=== PATIENT | female | born 1950 | race Caucasian/White ===

== ENCOUNTER 2018-04-18 19:39 | Emergency (ER) | payer MEDICARE, OTHER ==
[~2018-04-18] VITALS: Ht 160 cm; Wt 93.0 kg
[~2018-04-18 19:39] MED LIST: ASPI81EC; CIPRO500 MG PO; CITA20; CRUTCH3 USE; FAMO20; FELO2.5; FEXPSEER; FISH1000; Flagyl500 MG PO; GARLIC; HYDACE5 PO; LAMO100; LAMO100 PO; LEVSOD50 PO; LOPERAMIDE; LORA1 PO; LOVA40; MECL25 PO; MONT10T; MONT10T PO; MULVITA; MULVITMIND; Norco 5-325 Ta1 EACH PO; ONDA4ODT MM; PROM25 PO; Percocet 5-3251 EACH PO; ROSU10TA; ROSU10TA PO; RXHYDACE PO; RXONDA4ODT MM; SERT100 PO; VITB100; ZERTEC; [UNRECOGNIZED DRUG - OTHER]; [UNRECOGNIZED DRUG - REMARK]
[2018-04-18 20:44] LABS: BASOPHILS ABSOLUTE AUTO 0.04 K/mm3 (0.00-0.23); BASOPHILS PERCENT AUTO 1 % (0-2); EOSINOPHILS PERCENT AUTO 1 % (0-6); Hematocrit 41.4 % (33.0-51.0); Hemoglobin 13.7 g/dL (11.5-16.0); IMMATURE GRAN ABSOLUTE AUTO 0.02 K/mm3 (0.00-0.10); IMMATURE GRAN PERCENT AUTO 0 % (0-1); LYMPHOCYTES ABSOLUTE AUTO 2.78 K/mm3 (0.84-5.20); LYMPHOCYTES PERCENT AUTO 33 % (21-46); MONOCYTES ABSOLUTE AUTO 0.69 K/mm3 (0.16-1.47); MONOCYTES PERCENT AUTO 8 % (4-13); Mean Corpuscular HGB 30.4 pg (26.0-34.0); Mean Corpuscular HGB Conc 33.1 g/dL (31.5-36.5); Mean Corpuscular Volume 92 fL (80-100); Mean Platelet Volume 9.6 fL (9.1-12.4); NEUTROPHILS ABSOLUTE AUTO 4.79 K/mm3 (1.96-9.15); NEUTROPHILS PERCENT AUTO 57 % (41-73); Platelet Count 244 K/mm3 (150-400); RDW Coefficient Variation 13.7 % (11.7-14.2); RDW Standard Deviation 46.5 fL (35.1-46.3); Red Blood Cell Count 4.51 M/mm3 (3.80-5.20); White Blood Cell Count 8.42 K/mm3 (4.00-11.30)
[2018-04-18 20:49] LABS: Alanine Aminotransfer (ALT/SGP 46 U/L (12-78); Albumin, Blood 3.6 g/dL (3.4-5.0); Alk Phos 122 U/L (50-136); Anion Gap 7 mmol/L (6-16); Aspartate Aminotrans (AST/SGOT 33 U/L (12-37); Bilirubin, Total 0.3 mg/dL (0.1-1.0); Blood Urea Nitrogen 15 mg/dL (8-24); Bun/Creatinine Ratio 13.5 (12.0-20.0); CO2, Blood 22 mmol/L (21-32); Chloride, Blood 111 mmol/L (98-108); Creatinine, Blood 1.11 mg/dL (0.40-1.00); Globulin, Blood 3.6 g/dL (2.2-4.0); Glomerular Filtration Rate 52 (60-); Glucose, Blood 110 mg/dL (70-99); Potassium, Blood 3.5 mmol/L (3.5-5.5); Sodium, Blood 140 mmol/L (136-145); Total Protein, Blood 7.2 g/dL (6.4-8.2); Troponin I <0.015 ng/mL (0.000-0.040)
[2018-04-18 21:43] LABS: Influenza A Negative (NEGATIVE); Influenza B Negative (NEGATIVE)
[2018-04-18] MEDS ORDERED: Doxycycline Hy100 MG PO (22:21)
[2018-04-18 22:59] LABS: Source, Urine Clean Catch
[2018-04-18 23:01] LABS: Bilirubin, Urine Neg (Neg); Blood, Urine Neg (Neg); Glucose Qualitative, Urine Neg (Neg); Ketones, Urine Neg (Neg); Leukocyte Esterase, Urine 3+ (Neg); Nitrite, Urine Neg (Neg); Protein, Urine Neg (Neg); Specific Gravity, Urine 1.015 (1.003-1.022); Urobilinogen, Urine NORM (Normal)
[2018-04-18 23:02] LABS: Appearance, Urine Clear (Clear); Color, Urine Yellow (P-Yellow)
[2018-04-18 23:15] LABS: Bacteria Few /hpf; Mucus Light (0-Heavy); Other Crystals Few /hpf; Red Blood Cells, Urine Not Seen /hpf (0-2); Squamous Epithelial Cells Not Seen /hpf (Few)
== END 2018-04-19 00:10 | disposition home or self-care (01) ==
LOC: ER 19:39
PROVIDERS: Emergency Medicine
DX: J18.9 Pneumonia, unspecified organism (principal); Z88.0 Allergy status to penicillin; Z88.5 Allergy status to narcotic agent; Z79.899 Other long term (current) drug therapy; Z79.82 Long term (current) use of aspirin
CPT/HCPCS: 36415; 71046; 80053; 81001; 84484; 85025; 87077; 87086; 87186; 87804; 93005; 93010; 96360; 99285-25; J7030

== ENCOUNTER 2019-03-17 10:52 | Emergency (ER) | payer MEDICARE, OTHER ==
[~2019-03-17] VITALS: Ht 157.5 cm; Wt 90.3 kg
[~2019-03-17 10:52] MED LIST changes: +Doxycycline Hy100 MG PO
[2019-03-17 11:40] LABS: BASOPHILS ABSOLUTE AUTO 0.02 K/mm3 (0.00-0.23); BASOPHILS PERCENT AUTO 0 % (0-2); EOSINOPHILS ABSOLUTE AUTO 0.04 K/mm3 (0.00-0.68); EOSINOPHILS PERCENT AUTO 1 % (0-6); Hematocrit 45.7 % (33.0-51.0); Hemoglobin 14.8 g/dL (11.5-16.0); IMMATURE GRAN ABSOLUTE AUTO 0.03 K/mm3 (0.00-0.10); IMMATURE GRAN PERCENT AUTO 0 % (0-1); LYMPHOCYTES ABSOLUTE AUTO 2.14 K/mm3 (0.84-5.20); LYMPHOCYTES PERCENT AUTO 31 % (21-46); MONOCYTES ABSOLUTE AUTO 0.47 K/mm3 (0.16-1.47); MONOCYTES PERCENT AUTO 7 % (4-13); Mean Corpuscular HGB 30.1 pg (26.0-34.0); Mean Corpuscular HGB Conc 32.4 g/dL (31.5-36.5); Mean Corpuscular Volume 93 fL (80-100); Mean Platelet Volume 9.9 fL (9.1-12.4); NEUTROPHILS ABSOLUTE AUTO 4.32 K/mm3 (1.96-9.15); NEUTROPHILS PERCENT AUTO 62 % (41-73); Platelet Count 226 K/mm3 (150-400); RDW Standard Deviation 44.6 fL (35.1-46.3); Red Blood Cell Count 4.91 M/mm3 (3.80-5.20); White Blood Cell Count 7.02 K/mm3 (4.00-11.30)
[2019-03-17 12:03] LABS: Alanine Aminotransfer (ALT/SGP 37 U/L (12-78); Albumin, Blood 3.9 g/dL (3.4-5.0); Albumin/Globulin Ratio 1.1 (0.8-1.8); Alk Phos 125 U/L (50-136); Anion Gap 7 mmol/L (6-16); Aspartate Aminotrans (AST/SGOT 22 U/L (12-37); Bilirubin, Total 0.3 mg/dL (0.1-1.0); Blood Urea Nitrogen 17 mg/dL (8-24); Bun/Creatinine Ratio 16.8 (12.0-20.0); CO2, Blood 25 mmol/L (21-32); Calcium, Blood 8.9 mg/dL (8.5-10.1); Chloride, Blood 111 mmol/L (98-108); Creatinine, Blood 1.01 mg/dL (0.40-1.00); Globulin, Blood 3.7 g/dL (2.2-4.0); Glomerular Filtration Rate 58 (60-); Glucose, Blood 110 mg/dL (70-99); Potassium, Blood 4.4 mmol/L (3.5-5.5); Sodium, Blood 143 mmol/L (136-145); Total Protein, Blood 7.6 g/dL (6.4-8.2); Troponin I <0.015 ng/mL (0.000-0.040)
[2019-03-17] MEDS ORDERED: MOTION RELIEF25 MG PO (15:47)
== END 2019-03-17 16:15 | disposition home or self-care (01) ==
LOC: ER 10:52
PROVIDERS: Emergency Medicine
DX: H83.09 Labyrinthitis, unspecified ear (principal); R42 Dizziness and giddiness; Z88.0 Allergy status to penicillin; Z88.8 Allergy status to other drugs, medicaments and biological substances; Z88.5 Allergy status to narcotic agent; Z79.899 Other long term (current) drug therapy; Z79.82 Long term (current) use of aspirin; I10 Essential (primary) hypertension; E03.9 Hypothyroidism, unspecified; E78.5 Hyperlipidemia, unspecified; F32.9 Major depressive disorder, single episode, unspecified; Z87.891 Personal history of nicotine dependence
CPT/HCPCS: 36415; 71046; 80053; 84484; 85025; 93005; 93010; 96374; 99284-25; J2405

== ENCOUNTER → 2019-09-18 | Outpatient (CLI) | payer MEDICARE, OTHER ==
[~2019-09-18] MED LIST changes: +MOTION RELIEF25 MG PO
== END | disposition home or self-care (01) ==
LOC: LAB EV 17:42 → LAB SHORT 17:42
DX: N39.0 Urinary tract infection, site not specified (principal)
CPT/HCPCS: 87086

== ENCOUNTER 2020-01-28 07:45 | Day surgery (SDC) | payer MEDICARE, OTHER ==
[~2020-01-28] VITALS: Ht 160 cm; Wt 90.0 kg
[~2020-01-28 07:45] MED LIST changes: -ASPI81EC; +Aspirin EC81 MG PO; +EUTHYROX88 MCG PO; +OMEP20ER PO
[2020-01-28] MEDS ORDERED: ISOSORBIDE MONO30 MG PO (08:26)
[2020-01-28 09:04] LABS: International Normalized Ratio 1.04; Prothrombin Time Results 11.1 Sec (9.7-11.5)
[2020-01-28] MEDS ORDERED: CLOP75 PO ×2 (11:54→15:57)
--- NOTE | 2020-01-28 12:45 | NUR ---
DR. CRANDALL CALLED DUE TO PT ALMOST FAINTING, DIAPHARETIC, CONFUSION HYPOTENSION AND RADIAL SITE HEMATOMA THE SIZE OF A [place]YAR[place]. PRESSURE WAS HELD MANUALLY, PT LAYED FLAT, FLUIDS WIDE OPEN-PER DR'S ORDERS. PRESSURE RETURNED QUICKLY. WILL CONTINUE TO MONITOR.
--- NOTE | 2020-01-28 13:00 | NUR ---
R RADIAL SITE HEMATOMA APPEARED. MANUAL PRESSURE WAS HELD FOR 15 MIN-CDI.
--- NOTE | 2020-01-28 13:45 | NUR ---
R RADIAL SITE HEMATOMA-MANUAL PRESSURE HELD FOR 15 MINUTES.-CDI
--- NOTE | 2020-01-28 14:15 | NUR ---
R RADIAL SITE HEMATOMA-PRESSURE HELD FOR 15 MIN. CDI WILL CONTINUE TO MONITOR.
--- NOTE | 2020-01-28 16:30 | NUR ---
TR BAND ALL AIR REMOVED FROM TR BAND. CDI-NO HEMATOMA NOTED.
--- NOTE | 2020-01-28 17:07 | NUR ---
DISCHARGE PAPERWORK PT REMAINED A&OX3 AND HAD MINIMAL PAIN IN RIGHT WRIST SITE-RESOLVED WITH ICE, REPOSITIONING AND MEDICATION PER SEP. DISCHARGE PAPERWORK GONE OVER WITH PT AND DAUGHTER. PT AND DAUGHTER VERBALLY STATED THE UNDERSTANDING OF THE DISCHARGE EDUCATION AND DENIED ANY QUESTIONS AT THIS TIME. HEATHER Robledo TOOK OVER CARE OF PATIENT.
--- NOTE | 2020-01-28 17:50 | NUR ---
PT DRESSED, TR BAND REMOVED, ACCESS SITE DRESSING PLACED, R WRIST SPLINT/R ARM SLING PLACED, PT IV DC'D INTACT, PT DC'D BY THIS RN BY WC WITH DAUGHTER DRIVING PT HOME
== END 2020-01-28 22:41 | disposition home or self-care (01) ==
LOC: MHTC 07:45
PROVIDERS: Internal Medicine Interventional Cardiology
DX: I25.118 Atherosclerotic heart disease of native coronary artery with other forms of angina pectoris (principal); E78.00 Pure hypercholesterolemia, unspecified; I12.9 Hypertensive chronic kidney disease with stage 1 through stage 4 chronic kidney disease, or unspecified chronic kidney disease; E03.9 Hypothyroidism, unspecified; G47.33 Obstructive sleep apnea (adult) (pediatric); E78.5 Hyperlipidemia, unspecified; E66.9 Obesity, unspecified; H90.5 Unspecified sensorineural hearing loss; N18.3 Chronic kidney disease, stage 3 (moderate); F41.9 Anxiety disorder, unspecified; Z87.891 Personal history of nicotine dependence; Z88.8 Allergy status to other drugs, medicaments and biological substances; Z88.0 Allergy status to penicillin; Z88.5 Allergy status to narcotic agent; Z79.899 Other long term (current) drug therapy; Z68.30 Body mass index [BMI] 30.0-30.9, adult
CPT/HCPCS: 76937; 85347; 85610; 93005; 93010; 93306; 93458; 99152; 99153; A9270; C1725; C1769; C1874; C1887; C1894; C9600; J1644; J2250; J3010; J7030; Q9967

== ENCOUNTER → 2020-04-27 | Outpatient (CLI) | payer MEDICARE, OTHER ==
[~2020-04-27] MED LIST changes: +CLOP75 PO; +ISOSORBIDE MONO30 MG PO
== END | disposition home or self-care (01) ==
LOC: LAB EV 16:15 → LAB SHORT 16:15
DX: N39.0 Urinary tract infection, site not specified (principal)
CPT/HCPCS: 87077; 87086; 87186

== ENCOUNTER → 2020-05-22 | Outpatient (CLI) | payer MEDICARE, OTHER ==
[2020-05-22 19:02] LABS: Protein, Urine Quantitative 5.6 mg/dL (0.0-11.9)
[2020-05-22 19:14] LABS: Microalbumin, Urine Quant. <5.000 mg/L (0.000-20.000)
== END | disposition home or self-care (01) ==
LOC: LAB SHORT 14:43 → LAB EV 14:43
PROVIDERS: Internal Medicine Nephrology
DX: N18.30 Chronic kidney disease, stage 3 unspecified (principal); D63.1 Anemia in chronic kidney disease; N25.81 Secondary hyperparathyroidism of renal origin; E55.9 Vitamin D deficiency, unspecified; E78.00 Pure hypercholesterolemia, unspecified; R76.9 Abnormal immunological finding in serum, unspecified; R94.5 Abnormal results of liver function studies; R94.6 Abnormal results of thyroid function studies; D51.8 Other vitamin B12 deficiency anemias; D52.8 Other folate deficiency anemias
CPT/HCPCS: 81050; 82043; 82570; 84156

== ENCOUNTER → 2020-12-26 | Outpatient (CLI) | payer MEDICARE, OTHER ==
[~2020-12-26] MED LIST changes: +Budeprion Xl300 MG PO; +DEXA2 PO; +ISOSORBIDE MONO60 MG PO; +LEVO-T100 MC1 PO; +NEURONTIN300 MG PO; +RAYALDEE30 MCG PO
== END | disposition home or self-care (01) ==
LOC: LAB SHORT 13:03 → LAB 13:03
DX: Z20.822 Contact with and (suspected) exposure to COVID-19 (principal)
CPT/HCPCS: U0003

== ENCOUNTER 2021-01-04 16:09 | Inpatient (IN) | payer MEDICARE, OTHER ==
[~2021-01-04] VITALS: Ht 160 cm; Wt 94.0 kg
[~2021-01-04 16:09] MED LIST changes: -Budeprion Xl300 MG PO; -DEXA2 PO; -ISOSORBIDE MONO60 MG PO; -LEVO-T100 MC1 PO; -NEURONTIN300 MG PO; -RAYALDEE30 MCG PO
[2021-01-04 16:52] LABS: BASOPHILS ABSOLUTE AUTO 0.01 K/mm3 (0.00-0.23); BASOPHILS PERCENT AUTO 0 % (0-2); EOSINOPHILS PERCENT AUTO 0 % (0-6); Hematocrit 43.5 % (33.0-51.0); Hemoglobin 14.4 g/dL (11.5-16.0); IMMATURE GRAN ABSOLUTE AUTO 0.05 K/mm3 (0.00-0.10); IMMATURE GRAN PERCENT AUTO 1 % (0-1); LYMPHOCYTES ABSOLUTE AUTO 0.95 K/mm3 (0.84-5.20); LYMPHOCYTES PERCENT AUTO 18 % (21-46); MONOCYTES ABSOLUTE AUTO 0.26 K/mm3 (0.16-1.47); MONOCYTES PERCENT AUTO 5 % (4-13); Mean Corpuscular HGB 29.6 pg (26.0-34.0); Mean Corpuscular HGB Conc 33.1 g/dL (31.5-36.5); Mean Corpuscular Volume 89 fL (80-100); Mean Platelet Volume 9.4 fL (9.1-12.4); NEUTROPHILS ABSOLUTE AUTO 4.17 K/mm3 (1.96-9.15); NEUTROPHILS PERCENT AUTO 77 % (41-73); Platelet Count 181 K/mm3 (150-400); RDW Coefficient Variation 13.4 % (11.7-14.2); RDW Standard Deviation 44.2 fL (35.1-46.3); Red Blood Cell Count 4.87 M/mm3 (3.80-5.20); White Blood Cell Count 5.44 K/mm3 (4.00-11.30)
[2021-01-04 17:17] LABS: Alanine Aminotransfer (ALT/SGP 70 U/L (12-78); Albumin, Blood 3.2 g/dL (3.4-5.0); Albumin/Globulin Ratio 0.8 (0.8-1.8); Alk Phos 193 U/L (50-136); Anion Gap 6 mmol/L (6-16); Aspartate Aminotrans (AST/SGOT 67 U/L (12-37); Bilirubin, Total 0.3 mg/dL (0.1-1.0); Blood Urea Nitrogen 15 mg/dL (8-24); Bun/Creatinine Ratio 16.3 (12.0-20.0); CO2, Blood 25 mmol/L (21-32); Calcium, Blood 8.4 mg/dL (8.5-10.1); Chloride, Blood 105 mmol/L (98-108); Creatinine, Blood 0.92 mg/dL (0.40-1.00); Globulin, Blood 4.1 g/dL (2.2-4.0); Glomerular Filtration Rate >60 (60-); Glucose, Blood 108 mg/dL (70-99); Potassium, Blood 3.7 mmol/L (3.5-5.5); Sodium, Blood 136 mmol/L (136-145); Thyroid Stimulating Hormone 0.903 uIU/mL (0.360-4.800); Total Protein, Blood 7.3 g/dL (6.4-8.2); Troponin I <0.015 ng/mL (0.000-0.040)
[2021-01-04 17:53] LABS: Base Excess Venous -0.4 mmol/L; PCO2 Venous 41.6 mmHg (38-42); pH Blood Venous 7.38 (7.34-7.37)
[2021-01-04 18:48] LABS: Source, Urine Voided
[2021-01-04 18:53] LABS: Appearance, Urine Clear (Clear); Bilirubin, Urine Neg (Neg); Blood, Urine Neg (Neg); Color, Urine Yellow (P-Yellow); Glucose Qualitative, Urine Neg (Neg); Ketones, Urine 1+ (Neg); Leukocyte Esterase, Urine 1+ (Neg); Nitrite, Urine Neg (Neg); Protein, Urine 1+ (Neg); Specific Gravity, Urine 1.015 (1.003-1.022); Urobilinogen, Urine NORM (Normal)
[2021-01-04 19:07] LABS: Bacteria Mod /hpf; Red Blood Cells, Urine Not Seen /hpf (0-2); Squamous Epithelial Cells Few /hpf (Few)
[2021-01-04] MEDS ORDERED: LEVO-T100 MC1 PO (19:52)
[2021-01-04] MEDS ORDERED: Budeprion Xl300 MG PO (19:54)
[2021-01-04] MEDS ORDERED: ISOSORBIDE MONO60 MG PO (19:54)
[2021-01-04] MEDS ORDERED: OMEP20ER PO (19:55)
[2021-01-04] MEDS ORDERED: NEURONTIN300 MG PO (19:56)
[2021-01-04] MEDS ORDERED: RAYALDEE30 MCG PO (22:06)
[2021-01-05 04:43] LABS: Bun/Creatinine Ratio 14.3 (12.0-20.0); Calcium, Blood 8.1 mg/dL (8.5-10.1); Creatinine, Blood 0.98 mg/dL (0.40-1.00); Potassium, Blood 3.7 mmol/L (3.5-5.5)
--- NOTE | 2021-01-05 05:33 | NUR ---
SHIFT SUMMARY* PATIENT ADMITTED TO FLOOR AT APPROXIMETLY 2130. FOUND TO BE A PLEASANT LADY WHO IS A&OX4. GEN WEAKNESS NOTED SINCE START OF COVID DX ON THE 5TH. CHRONIC BACK PAIN WORSE THAN USUAL SO PRN FENT GIVEN WITH GOOD IMPROVEMENT TO TOLERABLE LEVEL. VSS. NSR IN THE 80'S. SOME MILD CP COMING AND GOING WITH EXERTION. TAKEN FOR CTA WHICH WAS NEGATIVE. ON 2L NC SATING LOW 90'S. CPAP TO BE PUT ON FOR SLEEP. CRUZ AND DRY COUGH NOTED. TOLERATING CARDIAC DIET AND EXPRESSED THAT HER NAUSEA IS MUCH IMPROVED FROM LAST FEW DAYS. ATE HALF OF DINNER IS TAKING IT SLOW. SBA TO BATHROOM AND ONE BM HAD AT START OF SHIFT. UNSTEADY AND USING WALKER. KNOWS HER LIMITS AND CALLS APPROPRIATELY. 1ST DOSE DECADRON AND REMDESIVIR GIVEN PER ORDER. NO ACUTE CONCERNS AT THIS TIME. WILL CONTINUE TO MONITOR UNTIL REPORT GIVEN TO DAYSHIFT RN.
--- NOTE | 2021-01-05 14:55 | NUR ---
ADMIT: 01/04/21 DISCHARGE: DX: acute respiratory failure with hypoxia CC: [email or web address] PAM CALL: RESIDENCE: home with spouse CAREGIVER: Octaviano Xiong, Spouse / Partner, Dionte Ching, Child, Ellen Thao, family friend, DX: Anxiety, bipolar, COVID-19, CKD-stage 3, CRUZ, see list DME: briefs, CPAP CCM: none HOME HEALTH: none SUMMARY: 01/05/21- pt received + COVID on 12/25/20. XR- chest shows bilateral pneumonia. CT was done to rule out pulmonary embolism. CPAP settings: 10 w/ 5LPM bleed in and 2L NC. IV antibiotics started. No plan to d/c at this time. -gladys
--- NOTE | 2021-01-05 20:00 | NUR ---
PT ASSISTED WITH AMBULATION TO BATHROOM SEVERAL TIMES ASSIST X1 WITH THE WALKER EXPERIENCING MILD WOBBLINESS AT INITIATION OF TRANSFER TO STANDING; PT REPORTED H/A 1X AND RECEIVED ACETAMINOPHEN PER MAR, AFTERWARDS REPORTING ADEQUATE ANALGESIC EFFECTS; PT VSS ON 3LNC; PT'S DAUGHTER AVI CALLED AT 1007 FOR UPDATES AND HAD QUESTIONS ANSWERED, REPORTING THAT SHE HAD NO FURTHER QUESTIONS FOR RN AND TO PASS HER NUMBER TO DOCTOR; AVI'S NUMBER WAS GIVEN TO DR. DAVIS WHEN HE ROUNDED WITH REQUEST TO PROVIDE HER WITH UPDATES ON PLAN OF CARE AND PROGNOSIS; PT REPORTED GUSTATORY DISTURBANCES WHICH HAVE LED TO HER DIMINISHED APPETITE; PT DENIES ADDITIONAL CONCERNS AT THIS TIME
--- NOTE | 2021-01-06 05:42 | NUR ---
SHIFT SUMMARY PATIENT FOUND TO BE A PLEASANT LADY WHO IS A&OX4. FEELING MUCH BETTER THIS EVENING COMPARED TO YESTERDAY PER PATIENT REPORT. ON 3L NC SATING LOW 90'S. CRUZ IMPROVING. CPAP AT BEDSIDE FOR SLEEP. OCCASIONAL DRY COUGH. NSR ON THE MONITOR. DAUGHTER BROUGHT HER DINNER AND SHE ATE MORE THAN HALF AFTER PREVENTATIVE ZOFRAN GIVEN. APPETITE IMPROVING. VOIDING WELL WITH BRP. UP WITH SBA AND WALKER IS STILL PRETTY WEAK. SLOWLY GETTING STRENGTH BACK. PRN FENT GIVEN X1 WHEN TYLENOL NO SUFFICIENT FOR BACK PAIN. NO ACUTE CONCERNS AT THIS TIME. WILL CONTINUE TO MONITOR UNTIL REPORT GIVEN TO DAYSHIFT RN.
--- NOTE | 2021-01-06 18:03 | NUR ---
SHIFT NOTE PT WAS ABLE TO GET UP TO BATHROOM FOR SHOWER, PT TIRED AFTER MORNING SHOWER AND HAS SLEPT T/O THE DAY. PT'S O2 NEED DID INCREASE WHILE SLEEPING THIS AFTERNOON PT SALES REPRESENTATIVE [employer] LIGHT CONCERNED THAT HER O2 DROPPED WHILE SLEEPING BUT REFUSED CPAP WHILE SLEEPING SHE REPORTS IT IS UNCOMFORTABLE. S/O AND DAUGHTER UPDATED TODAY, DAUGHTER WISHED TO SPEAK WITH DR DAVIS HE WAS NOTIFIED OF FAMILY REQUEST TO CALL DAUGHTER SHE IS CONCERNED THAT PT HAS NOT A HAD A REPEAT XR TODAY.
--- NOTE | 2021-01-07 15:41 | NUR ---
REPORT GIVEN TO DOROTHEA MARES ON MEDICAL.
--- NOTE | 2021-01-07 18:32 | NUR ---
SHIFT SUMMARY PT IS AOX4 AND PLEASANT. PT DENIES PAIN, N/V,SOB. PT IS ON 3 L 02 AND DESATS WITH COUGHING AROUND 86%. PT IS SBA IN ROOM. PT APPETITE IS GOOD. FAMILY BROUGHT PT DINNER TODAY. PT TRANSFERRED TO MEDICAL UNIT AT APPROXIMATELY 1700. NO PROCEDURES DONE THIS RONALD. PLAN IS FOR FINAL REMDESIVIR DOSE TOMORROW AND HOPEFULLY WEANING O2 REQUIREMENTS. PT'S DAUGHTER VISITED THE PT WITH APPROVAL FROM PCU AND MEDICAL CHARGE. PT'S DAUGHTER HAD MANY REQUESTS FOR PT'S CARE THIS RONALD UPON TRANSFER TO UNIT AND REQUESTED PT ADVOCATE FOR PT'S HOSPITAL STAY EXPERIENCE. MESSAGE LEFT WITH THE PT ADVOCATE THIS RONALD. ENHANCED ISOLATION PRECAUTIONS MAINTAINED THIS SHIFT. PT IS IN BED, CALL LIGHT IN REACH, BED IN LOW POSITION.
--- NOTE | 2021-01-08 06:11 | NUR ---
SHIFT SUMMARY PATIENT ALERT AND ORIENTED. HAD NO COMPLAINTS OF PAIN. DID EXPERIENCE SHORTNESS OF BREATH UPON EXHERTION. PATIENT SLEPT WELL AND HAD MINIMAL NEEDS. NO ACUTE ISSUES NOTED OVERNIGHT. IV PATENT AND FLUSHED. BED IN LOWEST POSITION WITH WHEELS LOCKED AND ALARM ON. CALL LIGHT WITHIN REACH. REPORT GIVEN TO ONCOMING RN.
--- NOTE | 2021-01-08 15:33 | NUR ---
01/08/21- MAURY SPOKE WITH HOSPITAL NURSING GUITAR INSTRUCTOR, WHO REPORTS THAT THE PT AND FAMILY WERE TOLD BY DR. DAVIS, THAT ONCE PT RECEIVES HER LAST DOSE OF MEDICATION, SHE WILL BE DISCHARGED BECAUSE THIS IS HOSPITAL POLICY. IT IS ALSO REPORTED THAT DR. DAVIS WAS RUDE AND ARGUED WITH DAUGHTER ABOUT THE PT'S CARE. THERE IS ALSO A COMPLAINT THAT THE PT'S HAS NOT BEEN UPDATED ON HER CARE. WAS INFORMED THAT THE HOSPITAL IS GOING TO HOLD THE D/C AT THIS TIME. REACHED OUT TO DR. GRANADOS TO LET HIM KNOW THE SITUATION. HE WILL INVESTIGATE WHAT IS GOING ON AND WILL NOTIFY DR. DAVIS THAT THERE IS A COMPLIANT AGAINST HIM BY THE DAUGHTER. DR. GRANADOS WILL NOT BE TALKING WITH THE DAUGHTER AT THIS TIME. HELIO
--- NOTE | 2021-01-09 04:07 | NUR ---
SHIFT SUMMARY ASSUMED CARE OF PT AT 1900. PT IS A/OX4. HEART SOUNDS REGUALR, LUNG SOUNDS HAVE CRACKLES T/O. PT WORE CPAP DURING THE NIGHT. PT WAS ON 3L NC, PT SATURATIONS WERE IN THE 88-90% AT THE BEGINNING OF THE SHIFT BUT THEN SHE WAS IN THE 90-94% DURING THE NIGHT. PT C/O SEVERE HEADACHE, HOSPITALIST NOTIFIED AND ORDRED A ONE TIME TRAMADOL, WHICH HELPED PT TO SLEEP. PT IS INDEPENDENT IN ROOM. PT HAD NO OTHER COMLPAINTS AND SLEPT T/O THE NIGHT. CALL LIGHT IN REACH, BED IN LOWEST POSTION.
--- NOTE | 2021-01-09 10:48 | NUR ---
PT REPORTS FEELING MORE DIFFICULT TO BREATH TODAY. SHE IS CURRENTLY ON 3L VIA CT. NOTIFED DR DAVIS, CHEST X RAY IN PROGRESS CURRENTLY.
[2021-01-09 11:36] LABS: BASOPHILS ABSOLUTE AUTO 0.03 K/mm3 (0.00-0.23); BASOPHILS PERCENT AUTO 0 % (0-2); EOSINOPHILS ABSOLUTE AUTO 0.05 K/mm3 (0.00-0.68); EOSINOPHILS PERCENT AUTO 1 % (0-6); Hematocrit 41.5 % (33.0-51.0); Hemoglobin 13.8 g/dL (11.5-16.0); IMMATURE GRAN PERCENT AUTO 2 % (0-1); LYMPHOCYTES ABSOLUTE AUTO 1.89 K/mm3 (0.84-5.20); LYMPHOCYTES PERCENT AUTO 19 % (21-46); MONOCYTES ABSOLUTE AUTO 0.65 K/mm3 (0.16-1.47); MONOCYTES PERCENT AUTO 7 % (4-13); Mean Corpuscular HGB 29.4 pg (26.0-34.0); Mean Corpuscular HGB Conc 33.3 g/dL (31.5-36.5); Mean Corpuscular Volume 89 fL (80-100); Mean Platelet Volume 8.9 fL (9.1-12.4); NEUTROPHILS PERCENT AUTO 71 % (41-73); Platelet Count 302 K/mm3 (150-400); RDW Coefficient Variation 13.2 % (11.7-14.2); RDW Standard Deviation 42.6 fL (35.1-46.3); Red Blood Cell Count 4.69 M/mm3 (3.80-5.20); White Blood Cell Count 9.82 K/mm3 (4.00-11.30)
[2021-01-09 12:04] LABS: Alanine Aminotransfer (ALT/SGP 69 U/L (12-78); Albumin, Blood 3.1 g/dL (3.4-5.0); Albumin/Globulin Ratio 0.8 (0.8-1.8); Alk Phos 141 U/L (50-136); Anion Gap 8 mmol/L (6-16); Aspartate Aminotrans (AST/SGOT 35 U/L (12-37); Bilirubin, Total 0.5 mg/dL (0.1-1.0); Blood Urea Nitrogen 25 mg/dL (8-24); Bun/Creatinine Ratio 28.3 (12.0-20.0); CO2, Blood 28 mmol/L (21-32); Calcium, Blood 8.7 mg/dL (8.5-10.1); Chloride, Blood 99 mmol/L (98-108); Creatinine, Blood 0.88 mg/dL (0.40-1.00); Globulin, Blood 3.9 g/dL (2.2-4.0); Glomerular Filtration Rate >60 (60-); Glucose, Blood 103 mg/dL (70-99); Sodium, Blood 135 mmol/L (136-145)
--- NOTE | 2021-01-09 13:21 | NUR ---
NOTICED PT WAS AT 86-88% ON CONT PULSE OX. UPON ENTERING ROOM, THE PT REPORTED FEELING "LIKE I AM DROWNING" HER OXYGEN WAS AT 3L VIA NC AT THIS TIME. TURNED UP TO 5L NC AND NOTIFED DR DAVIS WHO WAS OUTSIDE THE ROOM. PT SATS SITTING AT 91-93%. RESPIRATORY THERAPY IN TO DO ALBUTEROL INHALER WITH PATIENT. PT CURRENTLY SITTING UP IN BED DOING NEBULIZER. PT HAS CALL LIGHT IN REACH, EDUCATED PT ON IMPORTANCE OF CALLING IF SHE FEELS ANY CHANGES OR WORSENING. SPOKE WITH PT'S DTR ON PHONE TO UPDATE HER ON PATIENTS DAY, SHE REQUESTED A CALL FROM DR DAVIS, WILL PASS ON THAT MESSAGE.
--- NOTE | 2021-01-09 17:20 | NUR ---
SHIFT SUMMARY PT REMAINS ON 5L VIA NC. REPORTS FEELING MUCH BETTER SINCE NEBULIZER, PT HAS CALL LIGHT CLOSE AND WILL CALL IF SHE FEELS LIKE SHE NEEDS IT AGAIN. SHE REPORTS FEELING MUCH MORE TIRED TODAY. TOLERATING PO WELL, SATS DROP WITH EATING BUT WILL RECOVER IF PT EATS SLOW AND FOCUSES ON BREATHING. STILL REPORTS NEEDING TO HAVE A BM. IV ABX INFUSING PER ORDERS. CRACKLES IN BASES OF LUNGS.
--- NOTE | 2021-01-10 04:31 | NUR ---
SHIFT SUMMARY ASSUMED CARE OF PT AT 1900. PT IS A/OX4. HEART SOUNDS REGULAR, LUNG SOUNDS ARE TIGHT WITH COURSE SOUNDS. RT GAVE PT BREATHING TREATMENT. PT STATES SHE IS FEELING BETTER FROM THIS MORNING, TITRATED FROM 5L NC TO 4L SATURATIONS REMAINED 95-97% T/O THE NIGHT. PT USE CPAP T/O THE NIGHT. PT IS INDEPENDNT TO THE BATHROOM. ENRIQUE CALLED THIS PM FOR AN UPDATE. CALL LIGHT IN REACH, BED IN LOWEST POSTION.
[2021-01-10 05:59] LABS: Anion Gap 4 mmol/L (6-16); Blood Urea Nitrogen 20 mg/dL (8-24); Bun/Creatinine Ratio 23.7 (12.0-20.0); CO2, Blood 28 mmol/L (21-32); Calcium, Blood 8.6 mg/dL (8.5-10.1); Chloride, Blood 105 mmol/L (98-108); Creatinine, Blood 0.84 mg/dL (0.40-1.00); Glomerular Filtration Rate >60 (60-); Glucose, Blood 133 mg/dL (70-99); Potassium, Blood 4.9 mmol/L (3.5-5.5); Sodium, Blood 137 mmol/L (136-145)
--- NOTE | 2021-01-10 18:21 | NUR ---
PATIENT A/OX4, UP INDEPENDENTLY IN ROOM. VSS, 90-93% ON 3LO2. USING PICKLE AND IS THROUHGOUT THE DAY. IV ABX TO TREAT PNA. DENIES ANY PAIN OR DISCOMFORT. CONT/INCONTINENT OR URINE. PLEASANT AND COOPERATIVE WITH CARE, NO NEW CONCERNS THIS SHIFT.
--- NOTE | 2021-01-11 05:55 | NUR ---
SUMMARY: A/OX4, INDEPENDENT IN ROOM AND CALLS APPROPRIATELY TO SPECIFY NEEDS. SHE REMAINS ON 3L O2 ON CONT BIOX W/SPO2 WNL. RESPS E/U AT REST AND BECOMES MILDLY SOB W/EXERTION. PT TOLERATES CPAP AT HS. PT USING PICKLE T/O NOCTE WA. IV ABX BEING RECIEVED FOR TX OF PNM. NO ACUTE CHANGES, VSS/AFEBRILE. WCTM AND REPORT TO DAY RN.
--- NOTE | 2021-01-11 12:28 | NUR ---
PT SITTING ON EOB EATING LUNCH. BIOX SHOWS O2 SATS DOWN TO 89%, HR BETWEEN 105 AND 115. PT NOT SHOWING ANY SIGNS OF DISTRESS, WILL MONITOR.
--- NOTE | 2021-01-11 12:40 | NUR ---
PT RECLINING ON BED AFTER LUNCH, AT THIS TIME O2 SATS ARE 90% AND HR IS 90. WILL CONTINUE TO MONITOR.
--- NOTE | 2021-01-12 04:13 | NUR ---
SUMMARY: PT A/OX4, INDEPENDENT IN ROOM AND CALLS APPROPRIATELY FOR ASSIST. SHE REMAINS ON 3L O2 BUT SEEMED TO TOLERATE EXERTION W/FEWER DESATS THIS SHIFT, SP02>90% WHEN UP TO TOILET ALL BUT X1. CONT BIOX INTACT AND RESPS E/U AT REST. PT WORE CPAP T/O NOCTE AND USED PICKLE WA. IV ABX BEING RECIEVED FOR TX OF BACTERIAL PNM. SHE'S HOPEFUL TO INCREASE ACITIVITY AND DECREASE O2 TODAY. NO ACUTE CHANGES, VSS/AFEBRILE. WCTM AND REPORT TO DAY RN.
[2021-01-12 05:52] LABS: Anion Gap 7 mmol/L (6-16); Blood Urea Nitrogen 26 mg/dL (8-24); Bun/Creatinine Ratio 29.5 (12.0-20.0); CO2, Blood 26 mmol/L (21-32); Chloride, Blood 101 mmol/L (98-108); Creatinine, Blood 0.88 mg/dL (0.40-1.00); Glomerular Filtration Rate >60 (60-); Glucose, Blood 124 mg/dL (70-99); Potassium, Blood 4.2 mmol/L (3.5-5.5); Sodium, Blood 134 mmol/L (136-145)
--- NOTE | 2021-01-12 17:02 | NUR ---
01/12/21- PER CHART REVIEW WITH DR. FELIX, PT IS IMPROVING AND HER O2 NEED IS DECREASING. SHE IS CURRENTLY ON 3-2L WITH RT WORKING ON DECREASING HER DOWN TO 1L. PT SAW THE PT YESTERDAY AND THEY DO NOT HAVE ANY RECOMMENDATION AND PLAN TO D/C HOME. -HELIO
--- NOTE | 2021-01-12 17:40 | NUR ---
PT WAS TRIALED ON ROOM AIR AT APPROX 1200 NOON, MAINTAINED SATS AT 90% OR ABOVE. PT REMAINS ON ROOM AIR AT THIS TIME, TOLERATING WELL. HER SATS WILL DIP DOWN INTO THE 80'S (85-89) WHEN SHE IS UP TO THE BATHROOM. SHE IS HOPING TO REMAIN OFF O2 T/O THE NIGHT AND IS HOPING TO BE DISCHARGED TOMORROW OR THE NEXT DAY. WILL CONTINUE TO MONITOR AND REPORT TO ONCOMING SUZAN
--- NOTE | 2021-01-13 03:41 | NUR ---
SHIFT SUMMARY PATIENT HAD NO ACUTE CHANGES OBSERVED. AXOX 4 AND INDEPENDENT IN ROOM. ON ROOM AIR STATING 90-92% AND 94%-97% WITH 2L O2 BLEED W/CPAP. DENIES PAIN, SOB, AND N/V. PATIENT HAD BM THIS SHIFT AND BOWEL CARE MEDICATION GIVEN PER EMAR. VSS/AFEBRILE. COOPERATIVE WITH CARE. CALL LIGHT IN REACH. BED IN LOWEST POSITION. WILL CONTINUE TO MONITOR UNTIL DAY SHIFT NURSE ASSUMES CARE.
[2021-01-13 06:13] LABS: Anion Gap 6 mmol/L (6-16); Blood Urea Nitrogen 27 mg/dL (8-24); Bun/Creatinine Ratio 27.8 (12.0-20.0); CO2, Blood 27 mmol/L (21-32); Calcium, Blood 8.8 mg/dL (8.5-10.1); Chloride, Blood 103 mmol/L (98-108); Creatinine, Blood 0.97 mg/dL (0.40-1.00); Glomerular Filtration Rate >60 (60-); Glucose, Blood 134 mg/dL (70-99); Potassium, Blood 3.9 mmol/L (3.5-5.5); Sodium, Blood 136 mmol/L (136-145)
[2021-01-13] MEDS ORDERED: DEXA2 PO (09:05)
--- NOTE | 2021-01-13 11:12 | NUR ---
01/13/21- Per chart review with Dr. Ashford, pt is going to be discharged today and her ride will be here this afternoon at 4 to get her. Spoke with pt, she is ready to go home and she is now on room air. pt reports that her daughter will be helping in the home and picking up groceries and simple meals so that pt and her can care for themselves. Reviewed PAM and follow up appt. Pt acknowledged understanding. -gladys
--- NOTE | 2021-01-13 14:27 | NUR ---
PT TO DISCHARGE HOME. IV REMOVED, NO SS OF INFECTION NOTED, PATIENT TOLERATED WELL. PT SHOWERED AND DRESSED HER SELF. PT AND NURSE WENT OVER NEW MEDS.FOLLOW UP WITH PCP. PT TO BE TAKEN HOME. PT ON ROOM AIR AT THIS TIME AND IN NO DISTRESS. TO BE PICKED UP BY DAUGHTER AND TAKEN HOME.
== END 2021-01-13 15:45 | disposition home or self-care (01) | DRG 177 ==
LOC: ER 16:09 → PCU 16:10 → MEDS 01-07 16:35 → PCU 01-07 16:35 → MEDS 01-08 07:41 → PCU 01-13 15:45 → MEDS 01-13 15:45
PROVIDERS: Emergency Medicine; Internal Medicine; Student in an Organized Health Care Education/Training Program; ADMIT Internal Medicine
PROC: 3E0333Z Introduction of Anti-inflammatory into Peripheral Vein, Percutaneous Approach (ICD-10-PCS; principal; 2021-01-05)
PROC: XW033E5 Introduction of Remdesivir Anti-infective into Peripheral Vein, Percutaneous Approach, New Technology Group 5 (ICD-10-PCS; 2021-01-05)
PROC: 8E0ZXY6 Isolation (ICD-10-PCS; 2021-01-05)
DX: U07.1 COVID-19 (principal); J12.82 Pneumonia due to coronavirus disease 2019; J96.01 Acute respiratory failure with hypoxia; J15.9 Unspecified bacterial pneumonia; M54.2 Cervicalgia; M54.5 Low back pain; G47.33 Obstructive sleep apnea (adult) (pediatric); I25.10 Atherosclerotic heart disease of native coronary artery without angina pectoris; I10 Essential (primary) hypertension; E03.9 Hypothyroidism, unspecified; E78.5 Hyperlipidemia, unspecified; F32.9 Major depressive disorder, single episode, unspecified; M79.7 Fibromyalgia; Z88.0 Allergy status to penicillin; Z88.5 Allergy status to narcotic agent; Z88.8 Allergy status to other drugs, medicaments and biological substances; Z79.82 Long term (current) use of aspirin; Z79.02 Long term (current) use of antithrombotics/antiplatelets; Z79.899 Other long term (current) drug therapy; Z90.710 Acquired absence of both cervix and uterus; Z90.49 Acquired absence of other specified parts of digestive tract; Z87.891 Personal history of nicotine dependence
CPT/HCPCS: 36415; 71045; 71260; 80048; 80053; 81001; 82803; 83880; 84145; 84443; 84484; 85025; 85379; 93005; 93010; 94640; 94660; 94667; 94762; 97162; 97530; 99284-25; A9270; C9113; J0456; J0696; J1650; J1940; J2405; J3010; J7030; J7050; Q9967

== ENCOUNTER → 2021-03-01 | Outpatient (CLI) | payer MEDICARE, OTHER ==
[~2021-03-01] MED LIST changes: +Budeprion Xl300 MG PO; +DEXA2 PO; +ISOSORBIDE MONO60 MG PO; +LEVO-T100 MC1 PO; +NEURONTIN300 MG PO; +RAYALDEE30 MCG PO
== END | disposition home or self-care (01) ==
LOC: LAB SHORT 18:50 → LAB 18:50
DX: N39.0 Urinary tract infection, site not specified (principal)
CPT/HCPCS: 87086

== ENCOUNTER 2022-11-08 12:37 | Day surgery (SDC) | payer MEDICARE, OTHER ==
[~2022-11-08] VITALS: Ht 157.5 cm; Wt 93.2 kg
[2022-11-08] MEDS ORDERED: ROSU5 (13:27)
--- NOTE | 2022-11-08 15:35 | NUR ---
11/08/22 Josselyn Silva NACL 9ML INJECTED
[2022-11-08 16:15] VITALS: BP 113/70
== END 2022-11-08 16:16 | disposition home or self-care (01) ==
LOC: ORSCSDS 12:37
PROVIDERS: Student in an Organized Health Care Education/Training Program
PROC: 0DBL8ZX Excision of Transverse Colon, Via Natural or Artificial Opening Endoscopic, Diagnostic (ICD-10-PCS; principal; 2022-11-08 14:30)
PROC: 0DBN8ZX Excision of Sigmoid Colon, Via Natural or Artificial Opening Endoscopic, Diagnostic (ICD-10-PCS; principal; 2022-11-08 14:30)
PROC: 0DB98ZX Excision of Duodenum, Via Natural or Artificial Opening Endoscopic, Diagnostic (ICD-10-PCS; principal; 2022-11-08 14:30)
PROC: 0DB58ZX Excision of Esophagus, Via Natural or Artificial Opening Endoscopic, Diagnostic (ICD-10-PCS; principal; 2022-11-08 14:30)
PROC: 0D758ZZ Dilation of Esophagus, Via Natural or Artificial Opening Endoscopic (ICD-10-PCS; principal; 2022-11-08 14:30)
PROC: 0DBK8ZX Excision of Ascending Colon, Via Natural or Artificial Opening Endoscopic, Diagnostic (ICD-10-PCS; principal; 2022-11-08 14:30)
DX: R19.7 Diarrhea, unspecified (principal); K21.9 Gastro-esophageal reflux disease without esophagitis; R13.10 Dysphagia, unspecified; D12.2 Benign neoplasm of ascending colon; D12.3 Benign neoplasm of transverse colon; D12.5 Benign neoplasm of sigmoid colon; K29.70 Gastritis, unspecified, without bleeding; K62.89 Other specified diseases of anus and rectum; K57.30 Diverticulosis of large intestine without perforation or abscess without bleeding; I25.10 Atherosclerotic heart disease of native coronary artery without angina pectoris; G47.33 Obstructive sleep apnea (adult) (pediatric); E03.9 Hypothyroidism, unspecified; I12.9 Hypertensive chronic kidney disease with stage 1 through stage 4 chronic kidney disease, or unspecified chronic kidney disease; N18.9 Chronic kidney disease, unspecified; F31.9 Bipolar disorder, unspecified; Z79.899 Other long term (current) drug therapy; Z79.82 Long term (current) use of aspirin
CPT/HCPCS: 88305; J0330; J0461; J2405; J2704; J7120; Q9968

== ENCOUNTER → 2025-06-10 | Outpatient (CLI) | payer MEDICARE, OTHER ==
[~2025-06-10] MED LIST changes: +ROSU5
== END | disposition home or self-care (01) ==
LOC: LAB SHORT 16:12 → LAB 16:12
DX: N39.0 Urinary tract infection, site not specified (principal)
CPT/HCPCS: 87077; 87086; 87186